=== PATIENT | female | born 1935 | race Caucasian/White ===

== ENCOUNTER 2022-07-24 12:40 | Outpatient (CLI) | payer MEDICARE, SELFPAY ==
--- NOTE | ~2022-07-24 | CT_ITS ---
EXAMINATION: CT abdomen pelvis wo con DATE: 07/24/2022 13:22 INDICATION: Hernia of the anterior abdominal wall. TECHNIQUE: Computed tomography (CT) of the abdomen and pelvis was performed without intravenous contr ast. The dose-length product was 278.18 mGy-cm. Automated exposure control and iterative reconstructi on technique were employed. COMPARISON: None. FINDINGS: There is a hiatal hernia. Heart size is normal. No significant pleural or pericardial effus ion. There are peripheral interstitial densities in both lung bases, likely chronic. Moderate diffuse atherosclerosis. No aneurysm. No lymphadenopathy. There is a large amount of debris in the stomach. No evidence for ventral abdominal wall hernia. There is hepatomegaly. No focal hepati c masses. There are calcified granulomas of the liver and spleen. The pancreas, adrenal glands and ki dneys are unremarkable. No free air or free fluid. Generalized osteopenia. There is a 5 mm right lowe r lobe nodule, image 22. There are burst fractures of T11 and T12 with retropulsion into the spinal c anal. There is mild compression fracture of L2. There is grade 1 degenerative spondylolisthesis at L5 -S1. IMPRESSION: 1. No acute abdominal abnormality. 2: Age-indeterminate burst fractures of T11 and T12 with retropulsion into the spinal canal. Recommen d comparison to outside examinations to assess for change. Mild compression fracture of L2. 3: Hiatal hernia. 4: Hepatomegaly. Reviewed, dictated and finalized at location A. [employer] IMPRESSION: 1. No acute abdominal abnormality. 2: Age-indeterminate burst fractures of T11 and T12 with retropulsion into the spinal canal. Recommend comparison to outside examinations to assess for change . Mild compression fracture of L2. 3: Hiatal hernia. 4: Hepatomegaly.
== END 2022-07-24 12:41 | disposition home or self-care (01) ==
PROVIDERS: PCP Family Medicine; Visit Provider Physician Assistant
DX: K43.9 Ventral hernia without obstruction or gangrene (principal); S22.071A Stable burst fracture of T9-T10 vertebra, initial encounter for closed fracture; S22.081A Stable burst fracture of T11-T12 vertebra, initial encounter for closed fracture; X58.XXXA Exposure to other specified factors, initial encounter
CPT/HCPCS: 74176

== ENCOUNTER 2023-03-09 06:07 | Emergency (ER) | payer MEDICARE, SELFPAY ==
--- NOTE | ~2023-03-09 | XR_ITS ---
Clinical Indication: Chest pain, epigastric pain PA and lateral views of the chest: Comparison: None Findings: The lungs are clear, without evidence of focal consolidation or pleural effusion. Cardiome diastinal silhouette is within normal limits. There are severe compression fractures of T11 and T12. Right shoulder arthroplasty present. Impression: Clear lungs. Severe compression fractures of T11 and T12, stable as compared to prior CT dated 07/24/2022. Reviewed, dictated and finalized at location M. Impression: Clear lungs. Severe compression fractures of T11 and T12, stable as compared to prior CT lorna ed 07/24/2022.
--- NOTE | ~2023-03-09 | CT_ITS ---
CT of the Abdomen and Pelvis: Indication: Abdominal pain Technique: 2.5 mm axial scans were obtained through the abdomen and pelvis following intravenous adm inistration of 100 cc of Omnipaque 350. Dose reduction technique was used on this scan by utilizing a utomated exposure control and iterative reconstruction technique. The dose-length product (DLP) was 2 51.58 mGy-cm. COMPARISON: 07/24/2022 Findings: Scans through the lung bases demonstrates stable 6 mm right basilar pulmonary nodule (axia l image 24). Moderate to large hiatal hernia present. Possible wall thickening at the GE junction reg ion/gastric fundus. The liver, spleen, pancreas, gallbladder, adrenals and kidneys are within normal limits. No evidence of aortic aneurysm. No lymphadenopathy. No bowel obstruction or bowel wall thickening. There is no evidence to suggest acute appendicitis. Images through the pelvis there are mildly degraded by streak artifact from right hip orthopedic hard pritchett. Urinary bladder unremarkable. No adnexal mass seen. No ascites. Severe compression deformity of T11 and T12 are present, stable since 07/24/2022. Impression: Moderate to large hiatal hernia. Possible wall thickening of the GE junction region/gastric fundus. M alignancy in this region cannot be completely excluded. Consider endoscopy to further evaluate/direct ly inspect. Stable 6 mm right basilar pulmonary nodule. Stable compression deformities of T11 and T12. Reviewed, dictated and finalized at location M. Impression: Moderate to large hiatal hernia. Possible wall thickening of the GE junction re gion/gastric fundus. Malignancy in this region cannot be completely excluded. C onsider endoscopy to further evaluate/directly inspect. Stable 6 mm right basilar pulmonary nodule. Stable compression deformities of T11 and T12.
[2023-03-09 06:11] VITALS: BP 181/66; PULSE 70; RESP 18; TEMP 36.4; O2SAT 96
--- NOTE | 2023-03-09 06:11 | ECG_ITS ---
Measurements Intervals [place] Rate: 67 P: -12 FL: 196 QRS: 47 QRSD: 132 T: 15 QT: 433 QTc: 458 Interpretive Statements SINUS RHYTHM INCOMPLETE RIGHT BUNDLE BRANCH BLOCK BASELINE ARTIFACT- I, II, III, AVR, AVL, AVF, V1-V6 BORDERLINE ECG NO PREVIOUS ECG AVAILABLE FOR COMPARISON Electronically Signed On 03-09-2023 6:59:39 CDT by Israel More D.O.
[2023-03-09] MEDS: ASPIRIN 81 MG CHEWABLE TABLET 324 MG PO (06:28)
[2023-03-09 06:32] LABS: Basophils Absolute Auto 0.1 K/mm3 (0.0-0.1); Basophils Percent Auto 0.7 % (0.2-1.2); Eosinophils Absolute Auto 0.1 K/mm3 (0-0.3); Hematocrit 41.2 % (37.0-47.0); Hemoglobin 13.5 g/dL (12.0-15.0); Immature Granulocyte Absolute 0.02 K/mm3 (0.00-0.031); Immature Granulocyte Percent A 0.3 % (0-0.5); Lymphocytes Absolute Auto 1.78 K/mm3 (0.9-3.2); Lymphocytes Percent Auto 25.9 % (18.3-44.2); Mean Corpuscular HGB Conc 32.8 g/dl (32-36); Mean Corpuscular Hemoglobin 32.1 pg (26-34); Mean Corpuscular Volume 97.9 fl (80-100); Mean Platelet Volume 10.1 fl (7.4-10.4); Monocytes Absolute Auto 0.5 K/mm3 (0.1-0.6); Monocytes Percent Auto 7.3 % (2.6-8.5); Neutrophils Absolute Auto 4.5 K/mm3 (1.3-6.7); Neutrophils Percent Auto 64.8 % (45.5-73.1); Platelet Count Result 281 k/mm3 (150-375); Red Blood Count 4.21 M/mm3 (4.2-5.4); Red Cell Distribution Width 12.9 % (11.5-14.5); White Blood Count 6.9 K/mm3 (4.5-10.0)
[2023-03-09 06:41] LABS: Alanine Aminotransferase 21 U/L (6-35); Albumin Level 4.6 g/dL (3.5-5.1); Alkaline Phosphatase 62 U/L (38-126); Anion Gap 10 mmol/L (8-16); Aspartate Amino Transferase 33 U/L (14-36); Bilirubin,Total 0.6 mg/dL (0.2-1.3); Blood Urea Nitrogen 17 mg/dL (7-17); Calcium 9.2 mg/dL (8.4-10.2); Carbon Dioxide 30 mmol/L (22-30); Chloride 102 mmol/L (98-107); Estimated CRCL calculation 36 ml/min; Estimated Glomerular Filt Rate > 60; Glucose 129 mg/dL (65-110); Lipase 80 U/L (23-300); Potassium 3.8 mmol/L (3.4-5.0); Prothrombin Time 14.1 Seconds (11.1-14.7); Sodium 142 mmol/L (137-145)
[2023-03-09 06:52] LABS: Troponin I < 0.012 ng/mL (0.000-0.034)
[2023-03-09 07:24] VITALS: BP 179/77; PULSE 72; RESP 17; O2SAT 99
--- NOTE | 2023-03-09 08:22 | ED.CHESTPAIN ---
HPI - Chest Pain General Chief Complaint: Chest Pain Stated Complaint: chest pain Time Seen by Provider: 03/09/23 07:05 Source: patient and RN notes reviewed Mode of arrival: ambulatory Limitations: no limitations History of Present Illness HPI narrative: This is an 88 year old female who presents for evaluation of lower abdominal pain. Patient states this morning she developed sharp lower abdominal pain that radiated up to her epigastric. She reports pain has been intermittent. It lasted for 10 minutes. She denies pain currently. She reports having nausea and emesis with clear phlegm. She denies fever, chills, urinary complaints. She reports normally having bowel movement in the morning but she not had one today yet. Related Data Home Medications Medication Instructions Recorded Confirmed multivitamin (One Daily 1 tablet PO DAILY 03/13/21 03/14/21 Multivitamin tablet) tumeric 100 mg-sanjana 150 mg-olive cap PO 03/13/21 03/14/21 50 mg-oreg 150 mg-caprylate capsule Allergies Allergy/AdvReac Type Severity Reaction Status Date / Time NKDA Allergy Mild Unknown Uncoded 03/09/23 06:24 Review of Systems Constitutional: Constitutional: Denies weakness Cardiovascular: Cardiovascular: Denies syncope, Denies rapid heart rate, Denies irregular heart rhythm, Denies leg edema and Denies dyspnea Respiratory: Respiratory: Denies chest congestion, Denies hemoptysis, Denies excessive phlegm production and Denies dyspnea Gastrointestinal: Gastrointestinal: Reports abdominal pain, Denies hematochezia, Denies diarrhea, Reports nausea and Denies vomiting Genitourinary: Genitourinary: Denies hematuria and Denies dysuria Musculoskeletal: Musculoskeletal: Denies joint swelling, Denies loss of height and Denies muscle weakness Neurologic: Denies syncope, Denies focal weakness and Denies weakness FOR[facility]LY [facility] Past Medical History Medical History (Updated 03/09/23 @ 10:17 by Phuong Subramanian MD) Atrial fibrillation Esophageal disease GERD (gastroesophageal reflux disease) Surgical History Surgical History (Updated 03/09/23 @ 08:23 by Phuong Subramanian MD) H/O: hysterectomy Family History Family History Mother Alzheimer disease Father Emphysema of lung Social History Social History Smoking status: Never smoker Alcohol intake: never Substance use: never Substance use type: does not use Exam Const: General: no acute distress and alert Nutritional Appearance: well nourished Orientation/consciousness: patient oriented x3 Limitations: no limitations HENMT: Head: normal to inspection Eyes: EOM: EOMs intact bilaterally Chest: Chest palpation & inspection: normal inspection of the chest Resp: Effort & Inspection: normal respiratory effort Auscultation: clear to auscultation bilaterally Cardio: Rate: regular rate Rhythm: regular rhythm Heart sounds: no murmurs GI: GI Palp: Yes Soft to palpation, No Firmness to palpation present (GI), No Tenderness to palpation present (GI), No Guarding due to palpation present (GI) and No Rigid due to palpation Auscultation: normal bowel sounds Back/Spine/Pelvis: Back: no CVA tenderness Skin: General skin exam: normal color Rashes: no rashes Neuro: General: patient oriented x3, moves all extremities and CN's II-XI intact bilaterally Cranial nerves: Yes Nystagmus not present Speech: normal speech Extrem: General: normal to inspection Psych: Mental Status: mental status grossly normal Affect: normal affect Attitude: cooperative Course Reevaluation(s) Reevaluation #1: PAtient presented for abdominal pain not chest pain. She does not have any pain now. I discussed CT showing thickening at GE junction and she will need for follow up with GI. She states she understands. Date: 03/09/23 Time: 10:09 Vital Signs Vital signs: Vital Signs Te
[2023-03-09 08:48] VITALS: PULSE 71; RESP 19; O2SAT 98
[2023-03-09 09:22] VITALS: BP 131/76; PULSE 69; RESP 19; O2SAT 98
[2023-03-09 09:31] VITALS: BP 127/66; PULSE 68; RESP 14
[2023-03-09 09:33] LABS: Appearance Urine Clear (Clear); Bacteria Urine None Seen /hpf; Bilirubin Urine Negative (Negative); Blood Urine Negative (Negative); Color Urine Yellow (Yellow); Glucose Urine UA Negative (Negative); Ketones Urine Negative (Negative); Leukocyte Esterase Ur 1+ LEU/UL (Negative); Need Manual Microscopic Reviewed; Nitrate Urine Negative (Negative); Non Pathogenic Casts 0-2; Protein Urine Negative (Negative); RBC Urine 0-2 /hpf (0-2); Specific Grav Ur 1.031 (1.001-1.035); Squamous Epithelial Cell Urine None seen /hpf (Few); Urobilinogen Urine 0.2 mg/dL (<2.0); WBC Urine 0-5 /hpf
[2023-03-09 09:41] LABS: Add Urine Microscopic? YES
[2023-03-09 09:46] LABS: Troponin I < 0.012 ng/mL (0.000-0.034)
[2023-03-09 10:25] VITALS: BP 117/55; PULSE 66; RESP 14; O2SAT 98
== END 2023-03-09 10:42 | disposition home or self-care (01) ==
PROVIDERS: Emergency Medicine; Emergency Provider General Practice; PCP Family Medicine
DX: K44.9 Diaphragmatic hernia without obstruction or gangrene (principal); R10.30 Lower abdominal pain, unspecified; K21.9 Gastro-esophageal reflux disease without esophagitis
CPT/HCPCS: 36415; 71046; 74177; 80053; 81001; 83690; 84484; 85025; 85610; 85730; 93005; 99284; A9270; Q9967

== ENCOUNTER 2024-03-30 08:20 | Outpatient (CLI) | payer MEDICARE, SELFPAY ==
--- NOTE | ~2024-03-30 | XR_ITS ---
EXAMINATION: XR small bowel follow through DATE: 03/30/2024 10:06 INDICATION: Gastroesophageal reflux disease without esophagitis. Left abdominal pain. TECHNIQUE: Oral contrast was administered, and a time course of radiographs of the abdomen was obtain ed. Fluoroscopy of the small bowel was performed. Fluoroscopy exposure time was 0.1 minutes. The tota l number of images was 11. COMPARISON: CT abdomen and pelvis 03/09/2023 FINDINGS: There is a moderate-sized sliding hiatal hernia. There are no dilated loops of bowel. There is no abn ormal mass or stricture. The terminal ileum is normal. Transit time from the stomach to proximal colo n was approximately 30 minutes. There is internal fixation of proximal right femur. There are old hea led fractures of right superior and inferior pubic rami. IMPRESSION: 1. Moderate-sized sliding hiatal hernia. Reviewed, dictated and finalized at location A.
== END 2024-03-30 08:21 | disposition home or self-care (01) ==
LOC: ANHIMG 08:24
PROVIDERS: PCP Family Medicine; Visit Provider Nurse Practitioner Family
DX: R93.89 Abnormal findings on diagnostic imaging of other specified body structures (principal); K21.9 Gastro-esophageal reflux disease without esophagitis; K22.2 Esophageal obstruction; K44.9 Diaphragmatic hernia without obstruction or gangrene
CPT/HCPCS: 74250